=== PATIENT | male | born 1935 | race Caucasian/White ===

== ENCOUNTER 2017-04-24 13:21 | Inpatient (IN) ==
[2017-04-24] MEDS ORDERED: NS 1,000 ML IV ONE (13:54)
[2017-04-24] MEDS ORDERED: NS 0 ML ONE (13:55)
[2017-04-24 13:57] LABS: URINE CULTURE PL NEEDED? NO
[2017-04-24 14:03] LABS: BILIRUBIN URINE NEGATIVE (NEGATIVE); BLOOD URINE NEGATIVE (NEGATIVE); CLARITY CLEAR (CLEAR); COLOR YELLOW; GLUCOSE URINE NEGATIVE (NEGATIVE); LEUKOCYTES URINE NEGATIVE (NEGATIVE); NITRITE URINE NEGATIVE (NEGATIVE); PROTEIN URINE NEGATIVE (NEGATIVE); SP GRAVITY URINE 1.005; UROBILINOGEN URINE NORMAL
[2017-04-24 14:11] LABS: MANUAL DIFF NEEDED? NO
[2017-04-24 14:15] LABS: BASO% 0.8 % (0.0-0.8); EOS# 0.14 X1000 (0.0-0.7); EOS% 2.3 % (0.0-10.0); HEMATOCRIT 42.1 % (42.0-52.0); HEMOGLOBIN 13.9 g/dL (14.0-18.0); IMM GRAN# 0.01 X1000 (0.0-0.04); IMM GRAN% 0.2 % (0.0-0.5); LYMPH# 2.38 X1000 (1.2-3.4); LYMPH% 38.3 % (20.5-51.1); MCH 33.1 PG (27-31); MCV 100.2 FL (81-99); MONO# 0.71 X1000 (0.11-0.59); MONO% 11.4 % (1.7-9.3); MPV 9.8 FL (7.4-10.4); PLT 226 X1000 (130-400)
[2017-04-24 14:24] LABS: URINE CAST NONE SEEN /LPF; URINE CRYSTAL NONE SEEN /HPF; URINE EPITHELIAL CELLS <10 /HPF (<10); URINE RBC <10 /HPF (<10); URINE SOURCE CLEAN CATCH; URINE WBC <10 /HPF (<10)
--- NOTE | 2017-04-24 14:41 | Diag Imaging Result Doc PS360 ---
EXAM: CT HEAD W/O CONTRAST HISTORY: AMS TECHNIQUE: CT brain without contrast. Dose reduction protocol. COMPARISON: None. FINDINGS: No parenchymal hemorrhage. No epidural or subdural hematoma. No subarachnoid hemorrhage. There is atrophy with mild chronic microvascular ischemic changes. No mass identified on this noncontrasted exam. No hydrocephalus. No sinus opacification. IMPRESSION: 1.No hemorrhage 2.Mild atrophy with mild microvascular ischemic changes Electronically signed by Carloz Manjarrez 04/24/2017 2:39 PM
--- NOTE | 2017-04-24 14:42 | Diag Imaging Result Doc PS360 ---
EXAM: CHEST-1 VIEW HISTORY: AMS TECHNIQUE: AP chest COMPARISON: None. FINDINGS: The lungs are well expanded. The heart is not enlarged. The vessels are not distended. There are no infiltrates. No effusion identified. There are long-standing arthritic changes to the left shoulder. Old injury to the right third rib. IMPRESSION: Negative exam. Electronically signed by Carloz Manjarrez 04/24/2017 2:40 PM
[2017-04-24 15:00] LABS: AGAP 9; ALBUMIN 3.4 g/dL (3.5-5.0); ALKALINE PHOSPHATASE 97 U/L (32-122); BUN 19 mg/dL (8-22); CALCIUM 8.9 mg/dL (8.8-10.2); CHLORIDE 103 mmol/L (98-107); CK PROFILE 78 U/L (24-204); COSMO 280; GOT 15 U/L (10-34); GPT 14 U/L (10-44); POTASSIUM 4.2 mmol/L (3.5-5.1); SODIUM 139 mmol/L (136-145); TCO2 28 mmol/L (25-35); TOTAL PROTEIN 6.4 g/dL (6.3-8.3)
[2017-04-24] MEDS ORDERED: APRESOLINE IV PRN (19:17)
[2017-04-24] MEDS: ZOSYN 3.375 GM in NS 50 ML IV SCH (20:32)
[2017-04-24] MEDS: NS 1,000 ML IV SCH (20:32)
[2017-04-24] MEDS: ROCEPHIN 1 GM in NS 50 ML IV SCH (21:33)
[2017-04-25] MEDS: ZOSYN 3.375 GM in NS 50 ML IV SCH ×4 (01:04→20:25)
[2017-04-25] MEDS: ROCEPHIN 1 GM in NS 50 ML IV SCH (02:22)
--- NOTE | 2017-04-25 05:34 | EKG Report ---
Test Performed on : 04/24/2017 1:31:34 PM Test Reason : AMS Blood Pressure : / mmHG Vent. Rate : 052 BPM Atrial Rate : 052 BPM P-R Int : 138 ms QRS Dur : 078 ms QT Int : 438 ms P-R-T Axes : -12 010 036 degrees QTc Int : 407 ms Sinus bradycardia. Otherwise normal ECG No previous ECGs available Unconfirmed Result
[2017-04-25] MEDS: TYLENOL PO PRN (06:37)
[2017-04-25] MEDS ORDERED: ARICEPT PO SCH (10:30)
[2017-04-25] MEDS: LOTENSIN PO SCH (11:25)
[2017-04-25] MEDS: DETROL LA PO SCH (11:26)
[2017-04-25] MEDS: MIRAPEX PO SCH (11:26)
[2017-04-25] MEDS: ARICEPT PO SCH (11:27)
[2017-04-25] MEDS: NAMENDA PO SCH ×2 (11:27→22:11)
[2017-04-25] MEDS: ULTRAM PO PRN (11:34)
[2017-04-25] MEDS: NS 1,000 ML IV SCH (11:35)
[2017-04-26] MEDS: ZOSYN 3.375 GM in NS 50 ML IV SCH ×2 (01:40→07:05)
[2017-04-26] MEDS: NS 1,000 ML IV SCH (02:44)
[2017-04-26 06:08] LABS: MANUAL DIFF NEEDED? NO
[2017-04-26 06:16] LABS: BASO% 0.4 % (0.0-0.8); EOS# 0.11 X1000 (0.0-0.7); EOS% 1.3 % (0.0-10.0); HEMATOCRIT 39.1 % (42.0-52.0); HEMOGLOBIN 12.7 g/dL (14.0-18.0); IMM GRAN# 0.01 X1000 (0.0-0.04); IMM GRAN% 0.1 % (0.0-0.5); LYMPH# 2.57 X1000 (1.2-3.4); LYMPH% 31.1 % (20.5-51.1); MCH 32.6 PG (27-31); MCHC 32.5 g/dL (33-37); MCV 100.5 FL (81-99); MONO% 10.9 % (1.7-9.3); MPV 10.5 FL (7.4-10.4); NEUT% 56.2 % (42.2-75.2); PLT 222 X1000 (130-400); RBC 3.89 XMIL (4.7-6.1)
[2017-04-26 06:31] LABS: AGAP 8; BUN 16 mg/dL (8-22); CALCIUM 8.2 mg/dL (8.8-10.2); CHLORIDE 106 mmol/L (98-107); COSMO 280; POTASSIUM 4.2 mmol/L (3.5-5.1); SODIUM 140 mmol/L (136-145); TCO2 26 mmol/L (25-35)
[2017-04-26 07:35] VITALS: BP 169/59
[2017-04-26] MEDS: ARICEPT PO SCH (09:39)
[2017-04-26] MEDS: MIRAPEX PO SCH (09:39)
[2017-04-26] MEDS: DETROL LA PO SCH (09:40)
[2017-04-26] MEDS: NAMENDA PO SCH (09:40)
[2017-04-26] MEDS: LOTENSIN PO SCH (09:40)
[2017-04-26] MEDS: ULTRAM PO PRN (12:01)
[2017-04-26] MEDS: TYLENOL PO PRN (12:01)
--- NOTE | 2017-04-26 12:09 | ECHO REPORT ---
ORDER DATE: 04/25/2017 INDICATION: Syncope, bradycardia, hypertension. FINDINGS: 1. Right atrium is normal in size. 2. Mild tricuspid regurgitation. RV systolic pressure of 33. 3. Normal RV size and systolic function. 4. Trace pulmonic insufficiency. 5. Normal left atrial size with a left atrial volume index of 19. 6. No mitral prolapse. Mild mitral regurgitation. 7. Normal LV size with an end-diastolic dimension of 3.9. 8. Normal wall thicknesses with a posterior and interventricular septal thickness of 1 cm each. 9. Normal left ventricular systolic function, calculated ejection fraction of 64% with normal wall motion. 10. Aortic valve opens well. It is trileaflet. No evidence of stenosis or insufficiency. 11. Aorta appears normal in visualized segments. 12. No pericardial effusion seen. cc: MD Dalia Dominique CRNP Gregory S. Cheatham, MD
== END 2017-04-26 12:05 | disposition home health service (06) ==
LOC: P.ED 13:21 → P.MEDSURG 13:22
PROVIDERS: ADMIT Family Medicine; ATTEND Family Medicine

== ENCOUNTER 2018-09-27 17:33 | Inpatient (IN) ==
--- NOTE | 2018-09-27 17:59 | PROVIDER DOCUMENTATION ---
HPI-Fever - General Chief Complaint: Altered Mental Status Stated Complaint: unresponsive Time Seen by Provider: 09/27/18 17:40 Source: EMS, intermediate records Allergies/Adverse Reactions: Patient Allergies Allergy/AdvReac Type Severity Reaction Status Date / Time No Known Allergies Allergy Verified 07/29/17 06:52 Home Medications: Home Medication List Medication Instructions Recorded Confirmed Last Taken Type Donepezil HCl 10 mg PO DAILY 04/24/17 09/27/18 1 Day Ago History ~04/23/17 Pramipexole [Mirapex] 0.25 mg PO QHS 04/24/17 09/27/18 1 Day Ago History ~04/23/17 Acetaminophen/Diphenhydramine 1 ea PO BID 09/27/18 09/27/18 Unknown History [Tylenol Pm Ex-Strength Caplet] Bisacodyl [Dulcolax] 10 mg [place] QHS PRN 09/27/18 09/27/18 Unknown History Gabapentin 100 mg PO 09/27/18 Unknown History Hyoscyamine Subl [Levsin-Sl] 0.125 mg SUBLINGUAL Q4H PRN 09/27/18 09/27/18 Unknown History Memantine HCl 10 mg PO DAILY 09/27/18 09/27/18 Unknown History Metoclopramide [Reglan] 10 mg PO Q4H PRN 09/27/18 09/27/18 Unknown History Oxybutynin Chloride [Oxybutynin 15 mg PO QHS 09/27/18 09/27/18 Unknown History Chloride ER] Pantoprazole Sodium [Protonix] 40 mg PO DAILY 09/27/18 09/27/18 Unknown History Sennosides [Senna] 8.6 mg PO DAILY 09/27/18 09/27/18 Unknown History - History of Present Illness-Fever Nature of Presenting Problem: Per EMS, patient found with AMS today at [place]. Reportedly had fever of 103.1 and was unarousable at dinner time tonight. Patient does not contribute to history. Fever Severity/Quality: reports: greater than 102 F Onset/Duration: reports: unsure Timing: reports: still present Severity: reports: moderate Context: reports: decreased mental status, from intermediate Recent Illness?: reports: none Fever Therapy GRAPHIC MANAGER: Initiated none Cognitive Baseline: other (unknown) Modifying Factors: improves with: nothing - Glascow Coma Score Best Eye Response (Taft): (2) open to pain Best Verbal Response (Zoey): (1) no verbal response Best Motor Response (Taft): (5) localizes to pain Zoey Total: 8 Review of Systems - Adult - REVIEW OF SYSTEMS - ADULT Constitutional: reports: see HPI Eyes: reports: no symptoms reported Ears, Nose, Mouth & Throat: reports: no symptoms reported Cardiovascular: reports: no symptoms reported Respiratory: reports: no symptoms reported Gastrointestinal: reports: no symptoms reported Genitourinary: reports: no symptoms reported Musculoskeletal: reports: no symptoms reported Integumentary: reports: no symptoms reported Neurological: reports: no symptoms reported Psychiatric: reports: no symptoms reported Endocrine: reports: no symptoms reported Hematologic/Lymphatic: reports: no symptoms reported Allergic/Immunologic: reports: no symptoms reported All Other Systems: Reviewed and Negative Past History - Adult - PAST MEDICAL HISTORY-ADULT Review of Records: reports: Old Records Reviewed, Nursing Assessment Review, Medications Reviewed, Social history reviewed & non-contributory. Major Childhood Illnesses: reports: denies history Cardiovascular: reports: HTN Respiratory: reports: denies history Gastrointestinal: reports: denies history Obstetrical/Gynecological: reports: denies history Genitourinary: reports: denies history Musculoskeletal: reports: denies history Neurological: reports: dementia Psychiatric: reports: denies history Endocrine/Immune: reports: Diabetes Other Conditions: reports: denies history - PRIOR SURGERIES/PROCEDURES Surgical/Procedure History: reports: reviewed, not pertinent, joint replacement - IMMUNIZATION STATUS Childhood Immunizations: See Nurse Assessment Flu Vaccine: See Nurse Assessment - FAMILY HISTORY Family History: reviewed, not pertinent Physical Exam-General - PHYSICAL EXAM-ADULT Initial Vital Signs Reviewed: Yes - CONSTITUTIONAL General Appearance: no apparent distress, obtunded - HEAD, EARS, NOSE, MOUTH & THROAT HENMT: normocephalic/atraumatic, moist mucous membranes - NECK Neck: supple - RESPIRATORY Respiratory: lungs clear, normal breath sounds, no respiratory distress, no accessory muscle use - CARDIOVASCULAR Cardiovascular: normal peripheral pulses, regular rate, rhythm, no edema, no gallop, no JVD, no murmur - GASTROINTESTINAL (ABDOMEN) Abdominal Exam: normal bowel sounds, soft - LYMPHATIC Lymphatic: no adenopathy - SKIN Integumentary: normal color, normal turgor, warm/dry - PSYCHIATRIC Psych/Mental Status: disoriented x 3 Progress - PLAN OF CARE/RESULTS Progress/Plan/Lab Results: Vital Signs - 8 hr 09/27/18 17:56 Temperature 99.2 F Pulse Rate 75 Respiratory Rate 18 Blood Pressure 155/83 O2 Sat by Pulse Oximetry 93 L Laboratory Results - last 24 hr 09/27/18 09/27/18 09/27/18 18:25 18:25 18:25 WBC 8.98 RBC 4.07 L Hgb 13.2 L Hct 40.0 L MCV 98.3 MCH 32.4 H MCHC 33.0 RDW Std Deviation 12.9 Plt Count 284 MPV 10.0 Immature Gran % (Auto) 0.2 Neut % (Auto) 64.0 Lymph % (Auto) 20.4 L Bonner % (Auto) 13.9 H Eos % (Auto) 0.9 Baso % (Auto) 0.6 Immature Gran # (Auto) 0.02 Neut # (Auto) 5.75 Lymph # (Auto) 1.83 Bonner # (Auto) 1.25 H Eos # (Auto) 0.08 Baso # (Auto) 0.05 PT 14.1 INR 1.01 PTT (Actin FS) 29.8 Plasma Lactate 1.2 Orders Category Date Time Status Cardiac Monitoring DIRECTED Care 09/27/18 17:46 Active IV Insertion ORDERED Care 09/27/18 17:46 Completed Notify MD of + Sepsis Screen NOW Care 09/27/18 17:46 Active Notify Physician As Ordered Care 09/27/18 17:46 Active CHEST-1 VIEW [RAD] Stat Exams 09/27/18 17:46 Completed BLOOD CULTURE [BLDCUL] Stat Lab 09/27/18 18:25 Received CBC WITH DIFF [HEME] Stat Lab 09/27/18 18:25 Completed CK PROFILE [SP CHEM] Stat Lab 09/27/18 18:25 Received COMPREHENSIVE METABOLIC PANEL [CHEM] Stat Lab 09/27/18 18:25 Received INFLUENZA SCREEN A/B Stat Lab 09/27/18 18:56 Received LACTATE, PLASMA [CHEM] Lab 09/27/18 18:25 Completed LACTATE, PLASMA [CHEM] Lab 09/27/18 21:00 Uncollected LACTATE, PLASMA [CHEM] Lab 09/28/18 00:00 Uncollected PROTIME WITH INR [COAG] Stat Lab 09/27/18 18:25 Completed PTT [COAG] Stat Lab 09/27/18 18:25 Completed TROPONIN T Stat Lab 09/27/18 18:25 Received URINALYSIS W/POSS RFLX CULT [URINALYSIS] Stat Lab 09/27/18 17:46 Uncollected Acetaminophen [Ofirmev 1000 mg/Isotonic Soln] Med 09/27/18 18:47 Discontinued 1,000 mg in 100 ml IV ONCE Piperacillin/Tazobactam [Zosyn] 4.5 gm Med 09/27/18 18:29 Active 0.9% Sodium Chloride Inj [Ns] 100 ml IV NOW Vancomycin 1 gm/Ns Med 09/27/18 18:29 Active 1 gm in 250 ml IV NOW Oxygen Device Stat Oth 09/27/18 17:46 Active Result Diagrams: 09/27/18 18:25 09/27/18 18:25 - REASSESSMENT Reassessment #1 Time Reassessed: 19:03 Status: other (Endorsed patient to Dr. Jauregui at shift change.) - CONSULTS/PCP/HOSPITALIST Notification #1 *Consult/PCP/Hospitalist*: Dr Balbuena Time Discussed: 11:04 Consult Disposition: Will see in ED, Admit Departure - Departure Date of Disposition Decision: 09/27/18 Time of Disposition Decision: 23:04 DIAGNOSIS: Pneumonia Disposition: ADMITTED INPATIENT 09 Certified Medical Emergency: Emergent Condition: Fair Referrals and Follow-Ups: Afshin Pinon MD [Primary Care Provider] - - Critical Care Note This patient required my direct & personal management of CC.: No Attestation - Physician/ RADHA Attestation Patient care was provided by Advanced Practice Provider:: No The physician spent face to face time with patient:: Yes Advanced Practice Provider documentation review:: Supervising physician onsite and consulted in the evaluation and care of this patient. The physician did have a face to face encounter with the patient.
--- NOTE | 2018-09-27 18:09 | Diag Imaging Result Doc PS360 ---
EXAM: CHEST-1 VIEW 09/27/2018 HISTORY: AMS, fever TECHNIQUE: AP portable semierect at 1758 COMMENT: There is increased ill-defined opacity in the left lower lobe and some platelike opacity in the right lower lobe compared to 04/08/2018. IMPRESSION: Worsened bibasilar atelectasis and/or pneumonia. Electronically signed by Michelet Stovall 09/27/2018 6:07 PM
[2018-09-27] MEDS ORDERED: VANCOMYCIN 1 GM/NS 1 GM/250 ML IVPB IV ONE (18:29)
[2018-09-27] MEDS ORDERED: ZOSYN 4.5 GM in NS 100 ML IV ONE (18:29)
[2018-09-27 18:46] LABS: BASO# 0.05 X1000 (0.0-0.2); BASO% 0.6 % (0.0-0.8); EOS# 0.08 X1000 (0.0-0.7); EOS% 0.9 % (0.0-10.0); HEMOGLOBIN 13.2 g/dL (14.0-18.0); IMM GRAN# 0.02 X1000 (0.0-0.04); IMM GRAN% 0.2 % (0.0-0.5); LYMPH# 1.83 X1000 (1.2-3.4); LYMPH% 20.4 % (20.5-51.1); MCH 32.4 PG (27-31); MCV 98.3 FL (81-99); MONO# 1.25 X1000 (0.11-0.59); MONO% 13.9 % (1.7-9.3); NEUT# 5.75 X1000 (1.4-6.5); PLT 284 X1000 (130-400); RBC 4.07 XMIL (4.7-6.1); RDW 12.9 % (11.5-14.5); WBC 8.98 X1000 (4.8-10.8)
[2018-09-27] MEDS ORDERED: OFIRMEV 1000 MG/ISOTONIC SOLN 1,000 MG/100 ML BOTTLE IV ONE (18:47)
[2018-09-27 18:54] LABS: INR 1.01; PROTIME 14.1 Seconds (11.0-16.0)
[2018-09-27 18:55] LABS: PTT 29.8 Seconds (22.3-41.8)
[2018-09-27 19:10] LABS: AGAP 12; ALB/GLOB RATIO 1.4; ALBUMIN 3.4 g/dL (3.5-5.0); ALKALINE PHOSPHATASE 97 U/L (32-122); BUN 13 mg/dL (8-22); CALCIUM 8.3 mg/dL (8.8-10.2); CHLORIDE 101 mmol/L (98-107); CK PROFILE 61 U/L (24-204); COSMO 278; CREATININE 0.6 mg/dL (0.7-1.2); ESTIMATED GFR > 60; GLUCOSE 141 mg/dL (70-104); GOT 10 U/L (10-34); GPT 14 U/L (10-44); POTASSIUM 3.9 mmol/L (3.5-5.1); SODIUM 138 mmol/L (136-145); TCO2 25 mmol/L (25-35); TOTAL BILIRUBIN 0.38 mg/dL (0.20-1.00); TOTAL PROTEIN 5.9 g/dL (6.3-8.3)
[2018-09-27 20:13] LABS: ALLEN TEST YES; BE 2.6 mmoll (-3.0-3.0); BLOOD TYPE ARTERIAL; HCO3-(ACT) 26.9 mmoll (20.0-26.0); METHB 0.4 % (0.0-1.5); O2(CT) 17.2 mL/dL (15.0-23.0); O2HB 93.7 % (95.0-99.0); PCO2(98.6) 41 mmHg (35-45); PO2(98.6) 73 mmHg (60-100); SAMPLE BLOOD; pH(98.6) 7.43 (7.35-7.45)
[2018-09-27 20:14] LABS: MODALITY CANNULA
--- NOTE | 2018-09-27 21:53 | Diag Imaging Result Doc PS360 ---
EXAM: CT HEAD W/O CONTRAST 09/27/2018 HISTORY: AMS TECHNIQUE: This exam was performed using automated exposure control, adjustment of mA or kV according to patient size, and/or use of iterative reconstruction technique. COMMENT: There is no evidence of mass effect, bleed, or abnormal extra-axial fluid collection. There are calcifications in the globus pallidus bilaterally. There is moderate generalized cerebral atrophy. Compared to 04/24/2017 there has been no significant change. The visualized paranasal sinuses are clear. The calvarium is intact. IMPRESSION: No evidence of acute disease. Electronically signed by Michelet Stovall 09/27/2018 9:51 PM
[2018-09-27 22:34] LABS: URINE SOURCE CATH
[2018-09-27 22:37] LABS: BILIRUBIN URINE NEGATIVE (NEGATIVE); BLOOD URINE TRACE (NEGATIVE); COLOR YELLOW; GLUCOSE URINE NEGATIVE (NEGATIVE); KETONE URINE NEGATIVE (NEGATIVE); LEUKOCYTES URINE NEGATIVE (NEGATIVE); NITRITE URINE NEGATIVE (NEGATIVE); PROTEIN URINE TRACE mg/dL (NEGATIVE); SP GRAVITY URINE 1.029; TURBIDITY URINE CLEAR (CLEAR); UROBILINOGEN URINE 8 mg/dL (NORMAL)
[2018-09-27 22:38] LABS: UR EPITHELIAL CELLS <10 /HPF (<10); URINE BACTERIA NEGATIVE /HPF; URINE RBC <10 /HPF (<10); URINE WBC <10 /HPF (<10)
--- NOTE | 2018-09-27 23:04 | ED EKG INTERP ---
This chart was entered by Evelyn Cook Scribe, acting as scribe for Jose Guadalupe Jauregui MD. EKG Interpretation - EKG Time of EKG reading by physician:: 18:14 EKG Read and Signed by:: Susu Renteria EKG Interpretation (*Must complete 3 of following elements*): Abnormal Rate: 74 Rhythm: normal sinus QRS: normal ST Wave: normal Attestation - Physician/ RADHA Attestation Patient care was provided by Advanced Practice Provider:: No The physician spent face to face time with patient:: Yes Advanced Practice Provider documentation review:: Supervising physician onsite and consulted in the evaluation and care of this patient. The physician did have a face to face encounter with the patient. This chart was documented by the indicated scribe, (Evelyn Cook Scribe) and accurately reflects the services I performed and decisions made by me, Jose Guadalupe Jauregui MD, as attested by the provider's signature.
--- NOTE | 2018-09-27 23:38 | HISTORY AND PHYSICAL ---
INCOMPLETE REPORT, DICTATION STARTS HERE PRIMARY CARE PHYSICIAN: Unknown. CHIEF COMPLAINT: Fever. HISTORY OF PRESENTING ILLNESS: An 83-year-old male with a history of dementia, GERD, essential tremors, and hypertension, who resides at [facility]. Was sent from the facility due to patient having fever. The patient was evaluated the emergency department. He is a poor historian and most of the history is obtained from family members. As per family, he was having fever and more confused than his normal baseline. The patient had imaging done at the ED, which did show a pneumonia. Due to his presenting symptoms, he will require admission for further management. At the time of my examination, he was able to deny any headache, nausea, vomiting, diarrhea, chest pain, or shortness. Just stated he did not feel well. PAST MEDICAL HISTORY: Includes dementia, GERD, essential tremors, hypertension, TIA. PAST SURGICAL HISTORY: Bilateral hip replacement. ALLERGIES: No known drug allergies. CURRENT MEDICATIONS INCLUDE: Donepezil 10 mg p.o. daily, gabapentin 100 mg p.o. daily, Memantine 10 mg p.o. daily. INCOMPLETE REPORT, DICTATION ENDS HERE. cc: Jose Balbunea MD
[2018-09-28] MEDS ORDERED: TYLENOL PO PRN (00:09)
--- NOTE | 2018-09-28 00:12 | HISTORY AND PHYSICAL ---
This is a redictation PRIMARY CARE PHYSICIAN: Unknown COMPLAINT: Fever. HISTORY OF PRESENTING ILLNESS: An 83-year-old male with a history of dementia, GERD, essential tremors, and hypertension, who resides at [facility]. Was sent from the facility due to patient having fever. Patient was brought to the emergency department. He had imaging done which did show pneumonia. The patient is a poor historian and most of the history is obtained from family members. As per family members, patient was getting more confused and was having fever at the long term. At the time of my examination, patient was able to deny any headache, nausea, vomiting, diarrhea, chest pain, shortness of breath, or any weight changes. PAST MEDICAL HISTORY: Includes dementia, GERD, essential tremors, hypertension, TIA. PAST SURGICAL HISTORY: Bilateral hip replacement. ALLERGIES: No known drug allergies. CURRENT MEDICATIONS: Include donepezil 10 mg p.o. daily, memantine 10 mg p.o. daily, Reglan 10 mg p.o. q.4 hours, oxybutynin 15 mg p.o. at bedtime, pantoprazole 40 mg p.o. daily, Mirapex 0.25 mg p.o. at bedtime. SOCIAL HISTORY: No history of smoking, alcohol or illicit drug use. FAMILY HISTORY: No history of coronary disease. REVIEW OF SYSTEMS: Fourteen point review of system as in HPI; other systems all negative. PHYSICAL EXAMINATION: GENERAL: Cooperative, friendly male, he is resting comfortably now. VITAL SIGNS: Temperature 98.4 degrees, pulse 60, respiration 14, blood pressure 110/55. HEENT: Atraumatic, normocephalic. PERRLA. NECK: No masses. CHEST: Bibasilar rales. CARDIOVASCULAR: Regular rate and rhythm. ABDOMEN: Soft. Positive bowel sounds. EXTREMITIES: No edema. NEUROLOGIC: He is awake, alert, oriented x1. GENITOURINARY: No bladder distention. SKIN: Warm. LABORATORIES AND STUDIES: WBCs 8.98, hemoglobin 13.2, hematocrit 40.9, platelets 284,000. Sodium 138, potassium 3.9, chloride 101, CO2 of 25, BUN is 13, creatinine 0.6. Glucose is 141. Chest x- ray shows worsening bibasilar atelectasis or pneumonia. ASSESSMENT: An 83-year-old male with a history of dementia, gastroesophageal reflux disease, essential tremors, and hypertension, was brought from [facility] due to patient having fever and worsening confusion. He was evaluated in the emergency department, he had imaging done which did show a pneumonia. Subsequently, he will require admission for further management. 1. Suspected pneumonia. 2. Dementia. 3. Hypertension. 4. Gastroesophageal reflux disease. PLAN: 1. We will admit patient to medical floor with telemetry. 2. We will check blood cultures. Start patient on IV antibiotics. 3. We will restart other home medications. 4. Monitor blood pressure closely. 5. Put patient on DVT prophylaxis with SCDs. 6. We will continue to follow and reassess. Make further recommendation based on patient's clinical course. cc: Jose Balbuena MD MTDD
[2018-09-28] MEDS: NS 1,000 ML IV SCH ×2 (01:20→13:52)
[2018-09-28] MEDS: ZOSYN 3.375 GM in NS 50 ML IV SCH ×4 (01:20→20:46)
[2018-09-28 06:44] LABS: BASO# 0.04 X1000 (0.0-0.2); BASO% 0.5 % (0.0-0.8); EOS# 0.21 X1000 (0.0-0.7); EOS% 2.7 % (0.0-10.0); HEMATOCRIT 39.6 % (42.0-52.0); HEMOGLOBIN 12.9 g/dL (14.0-18.0); LYMPH# 1.98 X1000 (1.2-3.4); LYMPH% 25.6 % (20.5-51.1); MCH 32.3 PG (27-31); MCHC 32.6 g/dL (33-37); MCV 99.2 FL (81-99); MONO# 1.04 X1000 (0.11-0.59); MONO% 13.5 % (1.7-9.3); MPV 9.7 FL (7.4-10.4); NEUT# 4.45 X1000 (1.4-6.5); NEUT% 57.7 % (42.2-75.2); PLT 255 X1000 (130-400); RBC 3.99 XMIL (4.7-6.1); WBC 7.72 X1000 (4.8-10.8)
[2018-09-28 07:07] LABS: AGAP 8; BUN 12 mg/dL (8-22); CALCIUM 8.7 mg/dL (8.8-10.2); CHLORIDE 103 mmol/L (98-107); COSMO 275; CREATININE 0.6 mg/dL (0.7-1.2); ESTIMATED GFR > 60; GLUCOSE 97 mg/dL (70-104); POTASSIUM 3.8 mmol/L (3.5-5.1); SODIUM 138 mmol/L (136-145); TCO2 27 mmol/L (25-35)
[2018-09-28] MEDS: ARICEPT PO SCH (09:22)
[2018-09-28] MEDS: PROTONIX PO SCH (09:22)
[2018-09-28] MEDS: NAMENDA PO SCH (09:22)
[2018-09-28] MEDS ORDERED: DULCOLAX PR PRN (14:14)
[2018-09-28] MEDS ORDERED: ULTRAM PO PRN (15:45)
--- NOTE | 2018-09-28 15:58 | PROGRESS NOTE ---
DATE: 09/28/2018 SUBJECTIVE: The patient has no major complaints. OBJECTIVE: Vital Signs: Blood pressure is 147/57, heart rate of 55, respiratory rate 13, temperature 97.4 degrees, satting 99% on 2 L. Cardiovascular: Regular rate and rhythm. Pulmonary: Bilateral breath sounds. Clear to auscultation. Diminished at the bases. GI: Soft, nontender, nondistended. Bowel sounds are positive. LABORATORY/X-RAY DATA: White count 7, hemoglobin and hematocrit 12 and 39, platelets 255. Basic was normal. Lactate was normal. Chest x-ray was read as worsened bibasilar atelectasis and/or pneumonia. Chest x-ray to me did not really look terrible. PROBLEM LIST: 1. Bilateral lower lobe pneumonia. Presumably he is on intravenous Zosyn. I think that is reasonable. He is afebrile and he does not have a white count, but he is an institutional- exposure patient because of his long-term status, so we will continue to monitor. 2. Dementia. I think he is at his baseline. 3. Gastroesophageal reflux disease, stable. Repeat labs tomorrow and work on pulmonary toilet. He seems just very weak at baseline, so that may be contributing to his chronic debilitated state. cc: Prosper Ludwig MD
[2018-09-28] MEDS: TEARISOL OPH SOLUTION BOTH EYES SCH ×2 (16:11→22:00)
[2018-09-28] MEDS: NEURONTIN PO SCH (16:11)
[2018-09-28] MEDS: DUONEB (A & A) INH SCH ×2 (16:36→22:05)
[2018-09-28] MEDS ORDERED: ULTRAM PO SCH (17:00)
[2018-09-28] MEDS: LUBRIFRESH PM OPH OINTMENT BOTH EYES SCH (20:45)
[2018-09-28] MEDS: DITROPAN PO SCH (20:48)
[2018-09-28] MEDS ORDERED: MIRAPEX PO SCH (21:00)
[2018-09-29] MEDS: ZOSYN 3.375 GM in NS 50 ML IV SCH ×4 (01:25→20:59)
[2018-09-29] MEDS: DUONEB (A & A) INH SCH ×4 (03:41→22:35)
[2018-09-29] MEDS: LOVENOX SUBQ SCH (05:55)
[2018-09-29 06:39] LABS: BASO# 0.04 X1000 (0.0-0.2); BASO% 0.4 % (0.0-0.8); EOS# 0.08 X1000 (0.0-0.7); EOS% 0.8 % (0.0-10.0); HEMATOCRIT 38.4 % (42.0-52.0); HEMOGLOBIN 12.6 g/dL (14.0-18.0); IMM GRAN# 0.02 X1000 (0.0-0.04); IMM GRAN% 0.2 % (0.0-0.5); LYMPH# 1.23 X1000 (1.2-3.4); MCH 31.9 PG (27-31); MCHC 32.8 g/dL (33-37); MCV 97.2 FL (81-99); MONO# 0.91 X1000 (0.11-0.59); MONO% 9.7 % (1.7-9.3); MPV 9.5 FL (7.4-10.4); NEUT# 7.15 X1000 (1.4-6.5); NEUT% 75.9 % (42.2-75.2); PLT 272 X1000 (130-400); RBC 3.95 XMIL (4.7-6.1); RDW 12.5 % (11.5-14.5); WBC 9.43 X1000 (4.8-10.8)
[2018-09-29 07:07] LABS: AGAP 11; BUN 9 mg/dL (8-22); CALCIUM 8.9 mg/dL (8.8-10.2); CHLORIDE 101 mmol/L (98-107); COSMO 271; CREATININE 0.5 mg/dL (0.7-1.2); ESTIMATED GFR > 60; GLUCOSE 111 mg/dL (70-104); POTASSIUM 3.6 mmol/L (3.5-5.1); SODIUM 136 mmol/L (136-145); TCO2 24 mmol/L (25-35)
--- NOTE | 2018-09-29 08:20 | Diag Imaging Result Doc PS360 ---
CHEST-PORTABLE - 09/29/2018 INDICATION: dyspnea COMPARISON: 09/27/2018 FINDINGS: Lung volumes are severely low. No substantial infiltrates. Heart size and pulmonary vascularity is normal. No pneumothorax or pleural effusion. IMPRESSION: Low lung volumes. No infiltrates. Electronically signed by Raymundo Soni 09/29/2018 8:18 AM
[2018-09-29] MEDS: ARICEPT PO SCH (08:28)
[2018-09-29] MEDS: TEARISOL OPH SOLUTION BOTH EYES SCH ×4 (08:28→20:58)
[2018-09-29] MEDS: PROTONIX PO SCH (08:28)
[2018-09-29] MEDS: NAMENDA PO SCH (08:29)
[2018-09-29] MEDS: LOTENSIN PO SCH (08:29)
[2018-09-29] MEDS: NEURONTIN PO SCH ×2 (08:29→13:23)
[2018-09-29] MEDS: THERA M PLUS PO SCH (08:29)
[2018-09-29] MEDS ORDERED: MYSOLINE PO SCH (09:00)
--- NOTE | 2018-09-29 16:04 | PROGRESS NOTE ---
DATE: 09/29/2018 SUBJECTIVE: He is very lethargic today. He was pretty lethargic yesterday but today he is just even more lethargic. Really unclear why. OBJECTIVE: Vital Signs: Blood pressure is 140/64, heart rate of 86, temperature was 98.8 degrees. Cardiovascular: Regular rate and rhythm. Pulmonary: Bilateral breath sounds clear to auscultation. GI: Soft, nontender, nondistended. Bowel sounds were positive. Laboratory Data: White count is 9, hemoglobin and hematocrit 12 and 38, platelets 272,000. Basic was normal. Chest x-ray had low lung volumes but was pretty clear. Head CT done yesterday was pretty much unremarkable. PROBLEM LIST: 1. Pneumonia. He is on Zosyn and is stable. Chest x-ray really was not that impressive. 2. Dementia with progression and lethargy. If he is not much improved, we may need to consider further imaging of his head to rule out stroke or other process. I am going to stop any sedating medications because he is just very out of it. We will get a blood gas, make sure he is not hypercapnic, and follow. 3. Gastroesophageal reflux disease. We will continue proton pump inhibitor and follow closely. DISPOSITION: Pending his clinical status. cc: Prosper Ludwig MD
[2018-09-29 16:45] LABS: ALLEN TEST YES; BLOOD TYPE ARTERIAL; HCO3-(ACT) 27.2 mmoll (20.0-26.0); MODALITY CANNULA; O2HB 95.7 % (95.0-99.0); PCO2(98.6) 39 mmHg (35-45); PO2(98.6) 78 mmHg (60-100); SAMPLE BLOOD; SAO2 95.9 % (95.0-100.0); THB 12.6 g/dL (11.5-17.4); pH(98.6) 7.45 (7.35-7.45)
[2018-09-29] MEDS: DITROPAN PO SCH (20:59)
[2018-09-29] MEDS: LUBRIFRESH PM OPH OINTMENT BOTH EYES SCH (20:59)
[2018-09-30] MEDS: ZOSYN 3.375 GM in NS 50 ML IV SCH ×4 (02:12→20:09)
[2018-09-30] MEDS: DUONEB (A & A) INH SCH ×4 (03:48→22:35)
[2018-09-30] MEDS: LOVENOX SUBQ SCH (06:26)
[2018-09-30 07:00] LABS: BASO# 0.04 X1000 (0.0-0.2); BASO% 0.6 % (0.0-0.8); EOS# 0.15 X1000 (0.0-0.7); EOS% 2.4 % (0.0-10.0); HEMATOCRIT 39.4 % (42.0-52.0); HEMOGLOBIN 12.7 g/dL (14.0-18.0); LYMPH# 1.53 X1000 (1.2-3.4); LYMPH% 24.5 % (20.5-51.1); MCHC 32.2 g/dL (33-37); MCV 99.2 FL (81-99); MONO# 0.73 X1000 (0.11-0.59); MONO% 11.7 % (1.7-9.3); MPV 9.8 FL (7.4-10.4); NEUT# 3.79 X1000 (1.4-6.5); NEUT% 60.8 % (42.2-75.2); PLT 306 X1000 (130-400); RBC 3.97 XMIL (4.7-6.1); WBC 6.24 X1000 (4.8-10.8)
[2018-09-30 07:29] LABS: AGAP 11; BUN 10 mg/dL (8-22); CALCIUM 9.4 mg/dL (8.8-10.2); CHLORIDE 103 mmol/L (98-107); COSMO 276; CREATININE 0.6 mg/dL (0.7-1.2); ESTIMATED GFR > 60; GLUCOSE 88 mg/dL (70-104); POTASSIUM 3.8 mmol/L (3.5-5.1); SODIUM 139 mmol/L (136-145); TCO2 25 mmol/L (25-35)
--- NOTE | 2018-09-30 08:09 | EKG Report ---
Test Performed on : 09/27/2018 6:14:36 PM Test Reason : ED. NO EKG ORDER FOR MUSE Blood Pressure : / mmHG Vent. Rate : 074 BPM Atrial Rate : 074 BPM P-R Int : 136 ms QRS Dur : 082 ms QT Int : 390 ms P-R-T Axes : 026 -03 046 degrees QTc Int : 432 ms Normal sinus rhythm. Cannot rule out Anterior infarct , age undetermined Abnormal ECG When compared with ECG of 24-APR-2017 13:31, No significant change was found Unconfirmed Result
[2018-09-30] MEDS: TEARISOL OPH SOLUTION BOTH EYES SCH ×4 (09:37→20:24)
[2018-09-30] MEDS: PROTONIX PO SCH (09:37)
[2018-09-30] MEDS: LOTENSIN PO SCH (09:38)
[2018-09-30] MEDS: THERA M PLUS PO SCH (09:38)
--- NOTE | 2018-09-30 16:55 | PROGRESS NOTE ---
DATE: 09/30/2018 SUBJECTIVE: He is more awake today, still somewhat lethargic. He has very generalized weakness. White count 6, hemoglobin and hematocrit 12 and 39, platelets 306,000. OBJECTIVE: Vital Signs: Blood pressure is 130/54, heart rate 87, respiratory rate 16, temperature 98.6, 98% on 2 liters. Cardiovascular: Regular rate and rhythm. Pulmonary: Bilateral breath sounds. Clear to auscultation. GI: Soft, nontender, nondistended. Bowel sounds are positive. PROBLEM LIST: 1. Pneumonia. He is on Zosyn. Repeat chest x-ray which confirmed pneumonia but still very lethargic. ABG does not reveal hypercapnia or anything from that issue, but he has just got severe generalized weakness. On physical on his hand exam, he definitely has ulnar deviation and MCP inflammation of his right knuckles, which is overall improved. Will given him a dose of steroids and see if we can try to get that bit improved. 2. Dementia, unclear etiology. We will continue to follow very closely. 3. Disposition. He will go back to long-term care once that has been established. cc: Prosper Ludwig MD
[2018-09-30] MEDS: DITROPAN PO SCH (20:10)
[2018-09-30] MEDS: LUBRIFRESH PM OPH OINTMENT BOTH EYES SCH (20:24)
[2018-10-01] MEDS: ZOSYN 3.375 GM in NS 50 ML IV SCH ×4 (02:31→21:28)
[2018-10-01] MEDS: DUONEB (A & A) INH SCH ×4 (03:37→22:15)
[2018-10-01] MEDS: LOVENOX SUBQ SCH (05:13)
[2018-10-01 07:19] LABS: BASO# 0.05 X1000 (0.0-0.2); BASO% 0.6 % (0.0-0.8); EOS# 0.07 X1000 (0.0-0.7); EOS% 0.9 % (0.0-10.0); HEMOGLOBIN 13.8 g/dL (14.0-18.0); LYMPH# 1.59 X1000 (1.2-3.4); LYMPH% 20.3 % (20.5-51.1); MCH 31.9 PG (27-31); MCHC 32.9 g/dL (33-37); MONO# 0.68 X1000 (0.11-0.59); MONO% 8.7 % (1.7-9.3); MPV 9.6 FL (7.4-10.4); NEUT# 5.45 X1000 (1.4-6.5); NEUT% 69.5 % (42.2-75.2); PLT 370 X1000 (130-400); RBC 4.33 XMIL (4.7-6.1); RDW 12.6 % (11.5-14.5); WBC 7.84 X1000 (4.8-10.8)
[2018-10-01 07:46] LABS: AGAP 13; BUN 9 mg/dL (8-22); CALCIUM 9.5 mg/dL (8.8-10.2); CHLORIDE 99 mmol/L (98-107); COSMO 273; CREATININE 0.7 mg/dL (0.7-1.2); ESTIMATED GFR > 60; GLUCOSE 116 mg/dL (70-104); POTASSIUM 3.8 mmol/L (3.5-5.1); RA TEST < 10 IU/mL (0-14); SODIUM 137 mmol/L (136-145); TCO2 25 mmol/L (25-35)
[2018-10-01 08:22] LABS: SED RATE 59 mm/hr (0-15)
[2018-10-01] MEDS: THERA M PLUS PO SCH (09:02)
[2018-10-01] MEDS: PROTONIX PO SCH (09:02)
[2018-10-01] MEDS: LOTENSIN PO SCH (09:02)
[2018-10-01] MEDS: TEARISOL OPH SOLUTION BOTH EYES SCH ×4 (09:07→21:34)
[2018-10-01 09:20] LABS: C REACTIVE PROT QUANT 47.14 mg/L (0.00-5.00)
[2018-10-01] MEDS ORDERED: SOLU-MEDROL IV ONE (09:47)
[2018-10-01] MEDS ORDERED: SOLU-MEDROL ONE (17:50)
[2018-10-01] MEDS: DITROPAN PO SCH (21:28)
[2018-10-01] MEDS: LUBRIFRESH PM OPH OINTMENT BOTH EYES SCH (21:33)
--- NOTE | 2018-10-01 23:02 | PROGRESS NOTE ---
DATE: 10/01/2018 SUBJECTIVE: The patient has no major complaints. OBJECTIVE: Blood pressure is 152/83, heart rate 71, respiratory rate 18, temperature 98.6 degrees, 98% on 2 L. Cardiovascular: Regular rate and rhythm. Pulmonary: Bilateral breath sounds, clear to auscultation. GI: Soft, nontender, nondistended. Bowel sounds are positive. LABORATORY DATA: White count 7, hemoglobin and hematocrit 13 and 42, platelets 370,000. Basic was normal. CRP high. Uric acid was low, at 1.6. ASSESSMENT AND PLAN: 1. Putative pneumonia. We will continue empiric antibiotics, respiratory treatments, breathing treatments, pulmonary toilet and follow. 2. Severe dementia. We will continue medications and follow. 3. Inflammatory arthritis. We will start prednisone and follow. Unclear what the etiology is of his arthritis. We will check an x-ray of his right hand and follow. 4. Disposition: Hopefully home soon in the next 1-2 days, pending clinical status. cc: Prosper Ludwig MD
[2018-10-02] MEDS: ZOSYN 3.375 GM in NS 50 ML IV SCH ×4 (02:21→21:09)
[2018-10-02] MEDS: DUONEB (A & A) INH SCH ×4 (03:37→21:20)
[2018-10-02] MEDS: LOVENOX SUBQ SCH (05:42)
--- NOTE | 2018-10-02 06:24 | Diag Imaging Result Doc PS360 ---
HAND COMPLETE RIGHT - 10/01/2018 INDICATION: inflammatory arthritis TECHNIQUE: Three views COMPARISON: None FINDINGS: There is an indeterminate bony contour at the proximal phalanx of the pinky finger. No bony erosions. There is advanced osteoarthritis throughout the interphalangeal joints. Soft tissues are clear. IMPRESSION: 1. Slightly unusual, indeterminate contour at the proximal phalanx of the pinky finger. Please correlate to see if this is an area of tenderness. 2. Advanced osteoarthritis of the hand. Electronically signed by Raymundo Soni 10/02/2018 6:22 AM
[2018-10-02 07:48] LABS: HEMATOCRIT 42.6 % (42.0-52.0); LYMPH% 20.8 % (20.5-51.1); MCH 31.8 PG (27-31); MCHC 32.9 g/dL (33-37); MCV 96.8 FL (81-99); MONO# 0.39 X1000 (0.11-0.59); MONO% 6.7 % (1.7-9.3); MPV 9.5 FL (7.4-10.4); NEUT# 4.19 X1000 (1.4-6.5); NEUT% 72.5 % (42.2-75.2); PLT 375 X1000 (130-400); RDW 12.5 % (11.5-14.5); WBC 5.78 X1000 (4.8-10.8)
[2018-10-02 08:16] LABS: AGAP 11; BUN 13 mg/dL (8-22); CALCIUM 9.6 mg/dL (8.8-10.2); CHLORIDE 102 mmol/L (98-107); COSMO 281; CREATININE 0.7 mg/dL (0.7-1.2); ESTIMATED GFR > 60; GLUCOSE 130 mg/dL (70-104); POTASSIUM 4.4 mmol/L (3.5-5.1); SODIUM 140 mmol/L (136-145); TCO2 27 mmol/L (25-35)
[2018-10-02] MEDS: LOTENSIN PO SCH (08:48)
[2018-10-02] MEDS: THERA M PLUS PO SCH (08:48)
[2018-10-02] MEDS: PROTONIX PO SCH (08:48)
[2018-10-02] MEDS: TEARISOL OPH SOLUTION BOTH EYES SCH ×4 (08:49→21:10)
[2018-10-02] MEDS ORDERED: PREDNISONE PO SCH (09:00)
--- NOTE | 2018-10-02 11:30 | Diag Imaging Result Doc PS360 ---
EXAM: CHEST-PORTABLE INDICATION: dyspnea TECHNIQUE: One view COMPARISON: 09/29/2018 FINDINGS: There is suggestion of minimal left basilar atelectasis. The lungs are clear, otherwise. There is no discrete pleural fluid collection or pneumothorax. The cardiomediastinal silhouette and central vasculature are grossly unremarkable. IMPRESSION: Minimal left basilar atelectasis. No definite acute pathology, otherwise. Electronically signed by Damian Tatum 10/02/2018 11:28 AM
--- NOTE | 2018-10-02 16:19 | PROGRESS NOTE ---
DATE: 10/02/2018 SUBJECTIVE: Today is the first day I feel like he is actually a bit awake and alert, but the nursing staff reports he is much more confused, which may have been related to the steroids. In any case, he is overall doing okay. No major issues. He has tried to wander, but I think he is a little bit more with it than he was previously. OBJECTIVE: Vital signs: Blood pressure is 116/53, heart rate 80, respiratory rate 18, temperature 97.8 degrees, 94% on 2 L. Cardiovascular: Regular rate and rhythm. Pulmonary: Diminished at bases. Gastrointestinal: Soft, nontender, nondistended. Bowel sounds are positive. DIAGNOSTIC STUDIES: White count is 5, hemoglobin 14, hematocrit 42, platelets 375,000. Basic looked okay. CRP is a bit elevated. Rheumatoid factor was negative. Uric acid was normal. Sedimentation rate was 59, but he is 83. Chest x-ray showed left lower lobe infiltrate. PROBLEM LIST: 1. Left lower lobe pneumonia. He is on empiric antibiotics, which I think is in the form of Zosyn so we will continue to follow. Clinically, he seems like he is doing okay. Continue pulmonary toilet. I will add some Mucomyst. 2. Dementia, which I think waxes and wanes. His prednisone may have made him worse so we will continue to follow. 3. Arthritis. Hand films do not look like rheumatoid in particular. His uric acid level is low. We may just give him some nonsteroidals and hold any further prednisone just because of potential confusion. DISPOSITION: I think he is probably stable to go back. He is from a long-term facility. I think tomorrow he should be able to go back. cc: Prosper Ludwig MD
[2018-10-02] MEDS: MOBIC PO SCH (18:32)
[2018-10-02] MEDS: DITROPAN PO SCH (21:09)
[2018-10-02] MEDS: LUBRIFRESH PM OPH OINTMENT BOTH EYES SCH (21:09)
[2018-10-02] MEDS: MUCOMYST 20% INH SCH (21:20)
[2018-10-03] MEDS: ZOSYN 3.375 GM in NS 50 ML IV SCH ×3 (02:30→14:32)
[2018-10-03] MEDS: DUONEB (A & A) INH SCH ×4 (03:34→21:15)
[2018-10-03] MEDS: LOVENOX SUBQ SCH (05:00)
[2018-10-03 07:57] LABS: BASO# 0.03 X1000 (0.0-0.2); BASO% 0.3 % (0.0-0.8); EOS# 0.03 X1000 (0.0-0.7); EOS% 0.3 % (0.0-10.0); HEMATOCRIT 41.1 % (42.0-52.0); HEMOGLOBIN 13.5 g/dL (14.0-18.0); IMM GRAN# 0.02 X1000 (0.0-0.04); IMM GRAN% 0.2 % (0.0-0.5); LYMPH% 23.7 % (20.5-51.1); MCH 31.9 PG (27-31); MCHC 32.8 g/dL (33-37); MCV 97.2 FL (81-99); MONO# 1.09 X1000 (0.11-0.59); MONO% 9.2 % (1.7-9.3); MPV 9.7 FL (7.4-10.4); NEUT# 7.86 X1000 (1.4-6.5); NEUT% 66.3 % (42.2-75.2); PLT 410 X1000 (130-400); RBC 4.23 XMIL (4.7-6.1); RDW 12.6 % (11.5-14.5); WBC 11.83 X1000 (4.8-10.8)
[2018-10-03 08:17] LABS: AGAP 12; BUN 17 mg/dL (8-22); CALCIUM 9.6 mg/dL (8.8-10.2); CHLORIDE 103 mmol/L (98-107); COSMO 280; CREATININE 0.7 mg/dL (0.7-1.2); ESTIMATED GFR > 60; GLUCOSE 106 mg/dL (70-104); POTASSIUM 3.6 mmol/L (3.5-5.1); SODIUM 139 mmol/L (136-145); TCO2 24 mmol/L (25-35)
[2018-10-03] MEDS: PROTONIX PO SCH (08:50)
[2018-10-03] MEDS: MOBIC PO SCH (08:50)
[2018-10-03] MEDS: LOTENSIN PO SCH (08:50)
[2018-10-03] MEDS: THERA M PLUS PO SCH (08:50)
[2018-10-03] MEDS: MUCOMYST 20% INH SCH ×2 (10:05→21:15)
--- NOTE | 2018-10-03 14:16 | PROGRESS NOTE ---
DATE: 10/03/2018 SUBJECTIVE: The patient is resting in bed. Not in any obvious distress. OBJECTIVE: Vital signs: Vital signs are as follows: Temperature is 97.6 degrees, pulse is 70, respirations 14, blood pressure 159/64, oxygenation is 93%. HEENT: He is atraumatic, normocephalic. Cardiovascular system: S1, S2. Respiratory system: Has evidence of good air entry bilaterally. Abdomen: Soft, nontender. No masses felt. Extremities: No evidence of edema. Central nervous system: No obvious focal deficits noted. LABS: Labs are as follows: WBC is 11.83, hematocrit is 41.1, with a platelet count of 410. Sodium is 139, potassium 3.6, chloride is 103, bicarbonate is 24. BUN is 17, creatinine 0.7. X-RAYS: X-ray of the chest done on 10/02/2018 shows minimal left basilar atelectasis. No definite acute pathology noted. ASSESSMENT AND PLAN: 1. Left lower lobe pneumonia (probable). Continue current antibiotic regimen. Follow up on sputum, as well as blood cultures. 2. Dementia. Continue appropriate medications for this condition. The patient is on donepezil, as well as Namenda. 3. Gastroesophageal reflux disease. Continue proton pump inhibitor. 4. History of cerebrovascular accident. Maintain patient on aspirin. 5. Deep vein thrombosis prophylaxis. Lovenox. 6. Gastrointestinal prophylaxis. The patient is on proton pump inhibitor. cc: Remi Henry MD
[2018-10-03] MEDS: ASPIRIN PO SCH (14:45)
--- NOTE | 2018-10-03 17:14 | DISCHARGE SUMMARY ---
ADMISSION DATE: 09/27/2018 DISCHARGE DATE: PRINCIPAL DIAGNOSIS: Health-care associated pneumonia. SECONDARY DIAGNOSES: 1. Dementia. 2. Gastroesophageal reflux disease. 3. Essential tremors. 4. History of cerebrovascular accident (CVA). 5. Hypertension. DISCHARGE MEDICATIONS: Include the followin. Levaquin 500 mg p.o. daily x7 days. 2. Zyvox 600 mg p.o. twice a day for 7 days. 3. Augmentin 875 mg p.o. twice a day for 7 days. 4. Mirapex 0.25 g p.o. at bedtime. 5. Donepezil 10 mg p.o. at bedtime. 6. Namenda 10 mg p.o. daily. 7. Gabapentin 100 mg p.o. 3 times a day. 8. Hyoscyamine (Levsin) 0.125 mg sublingual every 4 hours as needed. 9. Oxybutynin 15 mg at bedtime. 10. Senna 8.6 mg p.o. daily. 11. Metoclopramide 10 mg p.o. 4 times a day. 12. Pantoprazole 40 mg p.o. daily. 13. Mineral oil/petroleum (white) 1 application both eyes at bedtime. 14. Multivitamin with minerals 1 daily. 15. Primidone 25 mg p.o. daily. 16. Acetaminophen 500 mg p.o. twice a day as needed. 17. Benazepril 40 mg p.o. daily. 18. Bisacodyl 10 mg rectally at bedtime. 19. Tramadol 50 mg p.o. 3 times a day. HOSPITAL COURSE: Mr. Randolph Bond is an 83-year-old male who has a history of dementia, gastroesophageal reflux disease, essential tremors, and hypertension, who resides in [facility] long-term. The patient was sent from their facility due to the patien having fever. The patient was evaluated in the ER. He is a poor historian and most of the history obtained from family members. Per family members, the patient has been having fever and more confused than usual. Imaging done while in the emergency department showed evidence suggestive of probable pneumonia. The patient was started on antibiotics accordingly. Flu test was negative, and blood cultures have been negative after 5 days. Most recent chest x-ray done on 10/02/2018 shows some minimal left basilar atelectasis with no definite acute pathology otherwise. At this time, patient has done well. He is stable. He can now be sent back to [facility] long-term. During my evaluation today, the patient was resting comfortable. PHYSICAL EXAMINATION: Vital signs: Temperature 97.6 degrees, pulse 78, respiratory rate 14, blood pressure 159/64, oxygen saturation is 93%. HEENT: Atraumatic, normocephalic. Cardiovascular system: S1, S2. Respiratory system: Has evidence of good air entry bilaterally. Abdomen: Soft, nontender. No masses felt. Extremities: No evidence of edema. Central nervous system: No obvious focal deficits noted. PLAN: Discharge back to [facility] facility today. The patient will require PT as well as OT evaluation. Activity to be as tolerated. He is expected to take his discharge medications as noted above, and we will recommend following up with his primary care physician in the next 2 weeks. cc: Remi Henry MD MTDD
[2018-10-03] MEDS: LUBRIFRESH PM OPH OINTMENT BOTH EYES SCH (21:52)
[2018-10-03] MEDS: DITROPAN PO SCH (21:52)
[2018-10-03] MEDS: ZYVOX PO SCH (21:54)
[2018-10-03] MEDS: AUGMENTIN PO SCH (21:55)
[2018-10-03] MEDS: TEARISOL OPH SOLUTION BOTH EYES SCH (21:55)
[2018-10-03] MEDS: LEVAQUIN PO SCH (21:55)
[2018-10-04] MEDS: DUONEB (A & A) INH SCH ×4 (03:45→21:24)
[2018-10-04] MEDS: LOVENOX SUBQ SCH (06:26)
[2018-10-04] MEDS: MUCOMYST 20% INH SCH ×2 (09:23→21:24)
[2018-10-04] MEDS: ZYVOX PO SCH ×2 (09:57→20:49)
[2018-10-04] MEDS: MOBIC PO SCH (09:57)
[2018-10-04] MEDS: THERA M PLUS PO SCH (09:57)
[2018-10-04] MEDS: ASPIRIN PO SCH (09:57)
[2018-10-04] MEDS: PROTONIX PO SCH (09:57)
[2018-10-04] MEDS: LOTENSIN PO SCH (09:57)
[2018-10-04] MEDS: AUGMENTIN PO SCH (09:57)
[2018-10-04] MEDS: LEVAQUIN PO SCH (09:57)
[2018-10-04] MEDS: TEARISOL OPH SOLUTION BOTH EYES SCH ×5 (09:58→20:49)
--- NOTE | 2018-10-04 12:39 | Diag Imaging Result Doc PS360 ---
CHEST-PORTABLE - 10/04/2018 INDICATION: pneumonia COMPARISON: 10/02/2018 FINDINGS: Lung volumes remain moderately low. There is some stable minimal bibasilar atelectasis. No new infiltrates. Heart size and pulmonary vascularity is normal. IMPRESSION: No change from prior. Low lung volumes with some minimal bibasilar atelectasis. Electronically signed by Raymundo Soni 10/04/2018 12:36 PM
[2018-10-04 12:46] LABS: BASO# 0.06 X1000 (0.0-0.2); BASO% 0.9 % (0.0-0.8); EOS# 0.15 X1000 (0.0-0.7); EOS% 2.2 % (0.0-10.0); HEMATOCRIT 42.1 % (42.0-52.0); HEMOGLOBIN 13.8 g/dL (14.0-18.0); LYMPH% 26.1 % (20.5-51.1); MCH 31.9 PG (27-31); MCHC 32.8 g/dL (33-37); MCV 97.2 FL (81-99); MONO# 0.66 X1000 (0.11-0.59); MONO% 9.6 % (1.7-9.3); MPV 9.4 FL (7.4-10.4); NEUT# 4.23 X1000 (1.4-6.5); NEUT% 61.2 % (42.2-75.2); PLT 441 X1000 (130-400); RBC 4.33 XMIL (4.7-6.1); RDW 12.9 % (11.5-14.5)
[2018-10-04 13:08] LABS: AGAP 13; BUN 11 mg/dL (8-22); CHLORIDE 99 mmol/L (98-107); COSMO 278; CREATININE 0.6 mg/dL (0.7-1.2); ESTIMATED GFR > 60; GLUCOSE 93 mg/dL (70-104); POTASSIUM 3.7 mmol/L (3.5-5.1); SODIUM 140 mmol/L (136-145); TCO2 28 mmol/L (25-35)
[2018-10-04] MEDS: MAXIPIME 1 GM in NS 50 ML IV SCH (15:23)
--- NOTE | 2018-10-04 15:30 | PROGRESS NOTE ---
DATE: 10/04/2018 SUBJECTIVE: The patient is sitting up attempting to eat breakfast. No acute events noted overnight. The patient is afebrile. OBJECTIVE: Vital Signs: Temperature 97.5 degrees, blood pressure 147/75, heart rate 75, respirations 18, O2 saturation 98% on 3 L nasal cannula. Intake 480, output 500. General: This is a chronically ill-appearing elderly male lying in bed in no acute distress. Heart: S1, S2 normal. Lungs: Equal air entry bilaterally. No crackles. No rales. Abdomen: Positive bowel sounds. Soft, nontender, nondistended. Extremities: No edema, no cyanosis. Neurologic: The patient is awake. LABS: Reviewed. ASSESSMENT AND PLAN: 1. Pneumonia. Continue with IV antibiotic therapy and bronchodilator therapy. We will likely plan to discharge the patient on Sunday. 2. Dementia. Aware. Continue on Aricept and Namenda. 3. History of cerebrovascular accident. Continue with aspirin. Will also consult physical therapy for range of motion. 4. Hypertension. Continue on the current antihypertensive regimen. 5. Deep vein thrombosis prophylaxis. Continue on Lovenox. cc: Zee Humphrey MD MTDD
[2018-10-04] MEDS: LUBRIFRESH PM OPH OINTMENT BOTH EYES SCH (20:49)
[2018-10-04] MEDS: DITROPAN PO SCH (20:49)
[2018-10-05] MEDS: DUONEB (A & A) INH SCH ×4 (03:44→21:22)
[2018-10-05] MEDS: MAXIPIME 1 GM in NS 50 ML IV SCH ×2 (06:30→16:05)
[2018-10-05] MEDS: LOVENOX SUBQ SCH (06:37)
[2018-10-05 07:31] LABS: HEMATOCRIT 43.4 % (42.0-52.0); HEMOGLOBIN 14.3 g/dL (14.0-18.0); MCH 32.2 PG (27-31); MCHC 32.9 g/dL (33-37); MCV 97.7 FL (81-99); MPV 9.4 FL (7.4-10.4); RBC 4.44 XMIL (4.7-6.1); RDW 12.8 % (11.5-14.5); WBC 7.24 X1000 (4.8-10.8)
[2018-10-05 08:10] LABS: AGAP 12; BUN 11 mg/dL (8-22); CALCIUM 9.5 mg/dL (8.8-10.2); CHLORIDE 101 mmol/L (98-107); COSMO 277; CREATININE 0.6 mg/dL (0.7-1.2); ESTIMATED GFR > 60; GLUCOSE 103 mg/dL (70-104); POTASSIUM 3.8 mmol/L (3.5-5.1); SODIUM 139 mmol/L (136-145); TCO2 26 mmol/L (25-35)
[2018-10-05] MEDS: PROTONIX PO SCH (09:28)
[2018-10-05] MEDS: ZYVOX PO SCH ×2 (09:28→19:38)
[2018-10-05] MEDS: THERA M PLUS PO SCH (09:28)
[2018-10-05] MEDS: LOTENSIN PO SCH (09:28)
[2018-10-05] MEDS: ASPIRIN PO SCH (09:28)
[2018-10-05] MEDS: MOBIC PO SCH (09:29)
[2018-10-05] MEDS: TEARISOL OPH SOLUTION BOTH EYES SCH ×5 (09:30→19:38)
[2018-10-05] MEDS: MUCOMYST 20% INH SCH ×2 (10:30→21:21)
--- NOTE | 2018-10-05 13:48 | PROGRESS NOTE ---
DATE: 10/05/2018 SUBJECTIVE: The patient is resting comfortably in bed. He has no complaints. OBJECTIVE: Vital Signs: Temperature 98.6 degrees, blood pressure 162/71, heart rate 76, respirations 14, O2 saturation 97% on 2-1/2 L nasal cannula. General: This is an elderly male lying in bed in no acute distress. Heart: S1, S2. Normal. Lungs: Equal air entry bilaterally. No wheezing. No rales. Abdomen: Positive bowel sounds. Soft, nontender, nondistended. Extremities: No edema. No cyanosis. Neurologic: The patient is alert and oriented. LABS: Reviewed. ASSESSMENT AND PLAN: 1. Pneumonia. Continue with the current antibiotic regimen plus bronchodilator therapy. We will plan to transition to oral antibiotic therapy on Sunday. 2. Dementia. Aware. Continue on Aricept and Namenda. 3. History of cerebrovascular accident. Continue on aspirin. Continue with physical therapy. 4. Hypertension. Stable. 5. Deep vein thrombosis prophylaxis. Continue on Lovenox. 6. Disposition. Will plan to discharge the patient to inpatient rehabilitation on Sunday. cc: Zee Humphrey MD MTDD
[2018-10-05] MEDS: DITROPAN PO SCH (19:38)
[2018-10-05] MEDS: LUBRIFRESH PM OPH OINTMENT BOTH EYES SCH (19:38)
[2018-10-06] MEDS: DITROPAN PO SCH ×2 (01:46→21:47)
[2018-10-06] MEDS: TEARISOL OPH SOLUTION BOTH EYES SCH ×5 (01:47→21:47)
[2018-10-06] MEDS: ZYVOX PO SCH ×3 (01:47→21:47)
[2018-10-06] MEDS: LUBRIFRESH PM OPH OINTMENT BOTH EYES SCH ×2 (01:47→21:47)
[2018-10-06] MEDS: DUONEB (A & A) INH SCH ×4 (03:30→21:09)
[2018-10-06] MEDS: MAXIPIME 1 GM in NS 50 ML IV SCH ×2 (03:49→18:02)
[2018-10-06] MEDS: LOVENOX SUBQ SCH (05:44)
[2018-10-06 07:47] LABS: AGAP 9; BUN 14 mg/dL (8-22); CALCIUM 9.2 mg/dL (8.8-10.2); CHLORIDE 101 mmol/L (98-107); COSMO 278; CREATININE 0.7 mg/dL (0.7-1.2); ESTIMATED GFR > 60; GLUCOSE 107 mg/dL (70-104); POTASSIUM 4.1 mmol/L (3.5-5.1); SODIUM 139 mmol/L (136-145); TCO2 29 mmol/L (25-35)
[2018-10-06] MEDS: LOTENSIN PO SCH (08:07)
[2018-10-06] MEDS: ASPIRIN PO SCH (08:07)
[2018-10-06] MEDS: MOBIC PO SCH (08:07)
[2018-10-06] MEDS: PROTONIX PO SCH (08:07)
[2018-10-06] MEDS: THERA M PLUS PO SCH (08:07)
[2018-10-06] MEDS: MUCOMYST 20% INH SCH ×2 (10:33→21:09)
--- NOTE | 2018-10-06 15:08 | PROGRESS NOTE ---
DATE: 10/06/2018 SUBJECTIVE: The patient is resting comfortably in bed. No acute events noted overnight. OBJECTIVE: Vital Signs: Temperature 97.5 degrees, blood pressure 123/64, heart rate 67, respirations 14, O2 saturation 96% on 2 L nasal cannula. General: This is an elderly male lying in bed in no acute distress. Heart: S1, S2 normal, regular rate and rhythm. Lungs: Equal air entry bilaterally. No crackles. No rales. Abdomen: Positive bowel sounds. Soft, nontender, nondistended. Extremities: No edema, no cyanosis. Neurologic: The patient is awake and alert. LABS: Reviewed. ASSESSMENT AND PLAN: 1. Pneumonia. Continue with IV antibiotic therapy. We will transition to oral antibiotic therapy tomorrow. 2. Dementia. Aware. Continue on Aricept and Namenda. 3. Hypertension. Controlled. 4. Deep vein thrombosis prophylaxis. Continue on Lovenox. 5. Disposition. The patient will be discharged to the [facility] tomorrow. cc: Zee Humphrey MD
[2018-10-07] MEDS: DUONEB (A & A) INH SCH ×3 (03:24→15:23)
[2018-10-07] MEDS: LOVENOX SUBQ SCH (06:25)
[2018-10-07] MEDS: MAXIPIME 1 GM in NS 50 ML IV SCH (06:25)
[2018-10-07 07:49] LABS: AGAP 9; BUN 14 mg/dL (8-22); CALCIUM 9.1 mg/dL (8.8-10.2); CHLORIDE 103 mmol/L (98-107); COSMO 275; CREATININE 0.7 mg/dL (0.7-1.2); ESTIMATED GFR > 60; GLUCOSE 117 mg/dL (70-104); SODIUM 137 mmol/L (136-145); TCO2 25 mmol/L (25-35)
[2018-10-07] MEDS: LOTENSIN PO SCH (08:43)
[2018-10-07] MEDS: ASPIRIN PO SCH (08:43)
[2018-10-07] MEDS: ZYVOX PO SCH (08:43)
[2018-10-07] MEDS: PROTONIX PO SCH (08:43)
[2018-10-07] MEDS: MOBIC PO SCH (08:43)
[2018-10-07] MEDS: TEARISOL OPH SOLUTION BOTH EYES SCH ×2 (08:44→13:38)
[2018-10-07] MEDS: THERA M PLUS PO SCH (08:44)
[2018-10-07] MEDS: MUCOMYST 20% INH SCH (09:41)
--- NOTE | 2018-10-07 13:30 | DISCHARGE SUMMARY ---
ADMISSION DATE: 09/27/2018 DISCHARGE DATE: ADDENDUM REPORT: The patient was kept over the weekend to continue to receive IV antibiotic therapy for pneumonia. The patient is improved this morning. He is currently saturating 97% on 3 liters nasal cannula. We will now transition the patient to oral antibiotic therapy. The patient is medically stable for discharge to inpatient rehabilitation. DISCHARGE MEDICATIONS: 1. Augmentin 875/125 one tablet oral twice a day x5 days. 2. Namenda 10 mg p.o. daily. 3. Gabapentin 100 mg p.o. 3 times a day. 4. Levsin SL 0.125 mg sublingual every 4 hours p.r.n. 5. Oxybutynin 15 mg p.o. at bedtime. 6. Senna 8.6 mg p.o. daily. 7. Reglan 10 mg p.o. 4 times a day. 8. Protonix 40 mg p.o. daily. 9. Lubricant eye ointment applied to both eyes at bedtime. 10. Multivitamin 1 tablet oral daily. 11. Benazepril 40 mg p.o. daily. 12. Bisacodyl 10 mg per rectum at bedtime p.r.n. for constipation. 13. Mirapex 0.25 mg oral at bedtime. 14. Aricept 10 mg p.o. at bedtime. 15. Primidone 25 mg p.o. daily. 16. Tramadol 50 mg p.o. 3 times a day p.r.n. cc: Zee Humphrey MD MTDAlfred
[2018-10-07 15:28] VITALS: BP 154/63
== END 2018-10-07 17:30 | DRG 193 ==
LOC: SUPCPDRO → ED 17:33 → SUATTDRO 23:51 → 3N 23:51
PROVIDERS: ATTEND Internal Medicine
CPT/HCPCS: 51702; 70450; 71010; 71045; 73130; 80048; 80053; 81001; 82550; 82805; 82948; 83605; 84145; 84484; 84550; 85025; 85027; 85610; 85651; 85730; 86140; 86200; 86431; 87040; 87275; 87276; 87804; 93005; 94640; 94761; 96365; 96367; 97110; 97162; 99285; A9270; J0131; J0692; J1650; J2543; J2930; J3370; J7030; J7506; J7512; XXXXX